=== PATIENT | male | born 1955 | race Caucasian/White ===

== ENCOUNTER 2019-01-20 09:12 | Inpatient (IN) ==
[2019-01-15 18:04] LABS: Appearance,Urine CLEAR; Bacteria,Urine 0 /hpf (0); Bilirubin,Urine NEG (NEG); Color,Urine YELLOW; Culture Indicated,Urine NO; Glucose,Urine (UA) NEGATIVE (NEG); Ketones,Urine NEG (NEG); Leukocyte Esterase,Urine NEG /uL (NEG); Mucus,Urine FEW /hpf (0); Nitrate,Urine NEG (NEG); Protein,Urine NEG (NEG); Urine Blood 0.03 mg/dL (<0.03); Urine RBC 3 /hpf (0-1); Urine Squamous Epithelial Cell 0 /hpf (0-4); Urine WBC 1 /hpf (0-4); Urobilinogen,Urine NEG (NEG)
[2019-01-15 18:50] LABS: Blood Urea Nitrogen 17 mg/dl (8-23); Calcium 9.4 mg/dl (8.6-10.4); Carbon Dioxide 26 mmol/L (22-30); Chloride 104 mmol/L (96-108); Glomerular Filtration Rate 94; Glucose 88 mg/dL (70-105)
[2019-01-15 18:51] LABS: Basophils # (Auto) 0 K/mcL (0.0-0.3); Basophils % (Auto) 0.6 % (0.0-2.0); Eosinophils # (Auto) 0.1 K/mcL (0.0-0.7); Eosinophils % (Auto) 1.1 % (0.0-7.0); Hematocrit 46.7 % (41.0-55.0); Hemoglobin 15.1 g/dL (13.5-16.5); Lymphocytes # (Auto) 2.1 K/mcL (1.5-4.8); Lymphocytes % (Auto) 28.9 % (15.5-49.0); Mean Cell Volume 96.3 fL (80.0-100.0); Mean Corpuscular HGB Conc 32.3 g/dL (31.0-36.0); Mean Platelet Volume 8.4 fL (7.4-10.4); Monocytes # (Auto) 0.5 K/mcL (0.1-0.9); Monocytes % (Auto) 7.4 % (1.0-12.0); Platelet Count 224 K/mcL (140-440); RBC 4.85 M/mcL (4.50-5.90); Red Cell Distribution Width 16.5 % (11.5-14.5); WBC 7.3 K/mcL (4.5-11.0)
[2019-01-15 20:27] LABS: Estimated Average Glucose(eAG) 123 mg/dL; Hemoglobin A1C 5.9 % HGB (4.0-6.0)
[~2019-01-20 09:12] MED LIST: CELECOXIB 200 MG CAPSULE PO SCH; IPRATROPIUM/ALBUTEROL 3 ML AMPUL.NEB NEB PRN; PREGABALIN 75 MG CAPSULE PO SCH; SCOPOLAMINE 1 PATCH PATCH TOPICAL PRN; ceFAZolin 2 GM in DEXTROSE 5% IN WATER 50 ML IV SCH; oxyCODONE 10 MG TAB.ER.12H PO SCH
[2019-01-20] MEDS ORDERED: LIDOCAINE HCL/PF 100 MG/5 ML SYRINGE IV ONE (11:22)
[2019-01-20] MEDS ORDERED: ePHEDrine 50 MG/ML AMPUL IV ONE (11:22)
[2019-01-20] MEDS ORDERED: PROPOFOL 200 MG/20 ML VIAL IV ONE (11:22)
[2019-01-20] MEDS ORDERED: KETAMINE 100 MG/ML ML IV ONE (11:22)
[2019-01-20] MEDS ORDERED: DEXAMETHASONE 10 MG/ML VIAL IV ONE (11:22)
[2019-01-20] MEDS ORDERED: GLYCOPYRROLATE 0.2 MG/ML VIAL IV ONE (11:22)
[2019-01-20] MEDS ORDERED: METOCLOPRAMIDE 10 MG/2 ML VIAL IV ONE (11:22)
[2019-01-20] MEDS ORDERED: FAMOTIDINE/PF 20 MG/2 ML VIAL IV ONE (11:22)
[2019-01-20] MEDS ORDERED: PHENYLEPHRINE 10 MG/ML VIAL IV ONE (11:22)
[2019-01-20] MEDS ORDERED: ONDANSETRON 4 MG/2 ML VIAL IV ONE (11:22)
[2019-01-20] MEDS ORDERED: POLYETHYLENE GLYCOL 3350 17 GM PACKET PO PRN (12:49)
[2019-01-20] MEDS ORDERED: FLEETS ADULT ENEMA PR PRN (12:49)
[2019-01-20] MEDS ORDERED: HYDROmorphone 2 MG/ML VIAL IV PRN (12:49)
[2019-01-20] MEDS ORDERED: BENZOCAINE/MENTHOL 1 LOZENGE PO PRN (12:49)
[2019-01-20] MEDS ORDERED: TRANEXAMIC ACID 1,000 MG/10 ML VIAL IV SCH (12:49)
[2019-01-20] MEDS ORDERED: MAGNESIUM HYDROXIDE 30 ML ORAL.SUSP PO PRN (12:49)
[2019-01-20] MEDS ORDERED: KETOROLAC 30 MG/ML VIAL IV PRN (12:49)
[2019-01-20] MEDS ORDERED: BISACODYL 10 MG SUPP.RECT PR PRN (12:49)
--- NOTE | 2019-01-20 12:49 | Brief Operative Note ---
Date of procedure: 01/20/19 Pre-op diagnosis: Left hip severe OA Post-op diagnosis: same Procedure: Left anterior total hip arthroplasty Grafts/Implants: Yes (Depuy Actis 6 std stem, +1.5 36 delta head, 54 cup, neutral altrx liner) Anesthesia: spinal, GLMA Findings: severe arthritis Complications: none Surgeon: Noe Butler Sales Facilitator: Robbin Benson Estimated blood loss (cc): 300 Specimens Removed/Pathology: none sent Condition: stable Disposition: PACU
[2019-01-20] MEDS ORDERED: CLOTRIMAZOLE/BETAMETHASONE DIP 45 GM CREAM..G. TP PRN (12:54)
--- NOTE | 2019-01-20 13:15 | Operative Note ---
DATE OF OPERATION: 01/20/2019 PREOPERATIVE DIAGNOSIS: Left hip severe osteoarthritis. POSTOPERATIVE DIAGNOSIS: Left hip severe osteoarthritis. PROCEDURE PERFORMED: Left anterior total hip arthroplasty placing a DePuy Actis standard offset size 6 femoral stem, a +1.5, 36 mm delta ceramic head ball with a 54 [place] cup and a neutral AltrX liner. SURGEON: Noe Butler MD LAW OFFICE ASSISTANT: Edilberto Benson PA-C. This provider's expertise and technical skill were required throughout the case. The PA assisted with preoperative coordination, intraoperative retraction, wound closure, dressing and splint application, as well as postoperative documentation and care coordination. ANESTHESIA: Spinal plus general. DRAINS: None. SPECIMENS: Femoral head and reamings, which were discarded. BLOOD LOSS: 300 mL COMPLICATIONS: None. POSTOPERATIVE CONDITION: Stable. INDICATIONS FOR SURGERY: This is a 63-year-old male who has had longstanding progressive worsening left hip pain. Radiographs showed [id number] osteoarthritis. FINDINGS AT SURGERY: Severe arthritis. Post implantation showed good component position with minimal leg lengthening. PROCEDURE IN DETAIL: The patient had been seen preoperatively. Informed consent obtained after discussion of risks and benefits of surgery. Risks including, but not limited to, bleeding; infection; injury to nerves, blood vessels, and other surrounding structures; anesthetic risks; incomplete or no resolution of symptoms; leg length discrepancy; dislocation; fracture; DVT and pulmonary embolus risks; and the possibility of needing further revision joint surgery. The patient understood these risks and wished to proceed. Correct operative site was marked and then spinal anesthesia given. The patient was then taken to the operating room and LMA general given. The patient was carefully transferred to the fracture table and then the operative hip was carefully prepped and draped in normal sterile fashion. Timeout was performed verifying patient name, operative site, and plan. Ioban was used to cover all skin surfaces. A standard anterior approach incision was made with a scalpel through skin and subcutaneous tissue. Hemostasis was obtained with Bovie cautery. Careful blunt dissection was taken down on the tensor fascia and then this was undermined circumferentially. IrriSept was irrigated and a ring retractor placed. Tensor fascia was incised in line with muscle fibers and then careful blunt dissection taken medial to the muscle belly. Blunt cobra retractors were placed on the superior and inferior femoral neck and then circumflex vessels were coagulated and cut and vastus fascia split distally. Anterior capsulectomy was performed and then the capsule releases. Corkscrew was placed in the femoral head. Prior to placement of the corkscrew we did take x-rays for joint point. Once a corkscrew was placed we used fluoroscopy to identify our approximate neck cut trajectory and then our femoral neck was cut with oscillating tip saw. Femoral head was removed and the acetabulum exposed. Labrum was excised circumferentially as well as soft tissue from the floor. We then irrigated with IrriSept. We then began sequentially reaming until 1 mm smaller than the final implant. We then opened the acetabular component. IrriSept was irrigated, after a minute pulse lavaged with saline and then the cup was impacted using the [id number]. Joint point was used to verify satisfactory cup position. A center hole cover was placed and then the acetabular liner was carefully aligned and impacted and carefully verified to be fully seated. We then released traction. The leg was externally rotated and released capsule around the medial neck. The leg was then extended and adducted. Capsule was released out towards greater trochanter and then the proximal femur was exposed. Box osteotome was used to gain canal entry and an awl was used to identify canal trajectory. Rongeur and rasp were used to lateralize and then we began sequentially broaching up to the final size. We calcar planed down onto the broach and then the neck trial and head ball were placed. The hip was reduced. Fluoro was brought in and x-rays taken, joint point was used to verify satisfactory position. We then re-dislocated and removed the trial implants. Definitive implants were opened. We then irrigated the femoral canal with IrriSept again, after a minute pulse lavaged with saline. The final stem was impacted and seated. We then opened the head ball. The stem was carefully cleaned and dried and the head ball was impacted. We then reduced the hip with satisfactory tension. Final fluoro images were taken and saved. We irrigated the joint with IrriSept, after a minute pulse lavaged with saline again and then closed the tensor fascia with two running #1 Vicryls, one running proximal, one running distal and a ring retractor was removed. Final IrriSept irrigation was done, after a minute final pulse lavage, and then fat was tacked to fascia with Vicryl and then 2-0 Monocryl for subcutaneous and geoff for skin. Xeroform and sterile dressing were applied. The patient was then awakened, extubated, and transferred to recovery in stable condition. BJB:norbert Job ID: [id number] Doc ID: [id number] Noe Butler MD
[2019-01-20] MEDS ORDERED: ACETAMINOPHEN 1,000 MG/100 ML BOTTLE IV ONE (13:22)
[2019-01-20] MEDS ORDERED: METHOCARBAMOL 1,000 MG/10 ML VIAL IV PRN (13:22)
[2019-01-20] MEDS ORDERED: fentaNYL 100 MCG/2 ML VIAL IV PRN (13:22)
[2019-01-20] MEDS ORDERED: ONDANSETRON 4 MG/2 ML VIAL IV PRN (13:22)
[2019-01-20] MEDS ORDERED: IPRATROPIUM/ALBUTEROL 3 ML AMPUL.NEB NEB PRN (13:22)
[2019-01-20] MEDS ORDERED: MEPERIDINE 25 MG/ML SYRINGE IV PRN (13:22)
[2019-01-20] MEDS ORDERED: LACTATED RINGERS 1,000 ML IV SCH (13:30)
--- NOTE | 2019-01-20 13:30 | XRay Report ---
CLINICAL INFORMATION: Left total hip arthroplasty TECHNIQUE: 0.4 minutes fluoroscopy utilized by Dr. Butler. Intraoperative spot films obtained. IMPRESSION: Left total hip arthroplasty Interpreted and Authenticated by: Tod Decker 01/20/19
--- NOTE | 2019-01-20 14:09 | XRay Report ---
CLINICAL INFORMATION: Left total hip arthroplasty TECHNIQUE: AP pelvis. AP and lateral left hip COMPARISON: Preoperative evaluation dated 10/21/2018 FINDINGS: Status post left total hip arthroplasty. Acetabular and femoral head component are in anatomic positions. There are skin geoff anteriorly. There is mild soft tissue post surgical gas IMPRESSION: Status post left total hip arthroplasty Interpreted and Authenticated by: Tod Decker 01/20/19
[2019-01-20] MEDS ORDERED: MAGNESIUM SULFATE 2 GM/50 ML BAG IV ONE (14:23)
[2019-01-20] MEDS ORDERED: DEXMEDETOMIDINE 400 MCG/100 ML BAG IV SCH (14:30)
[2019-01-20] MEDS ORDERED: BENZTROPINE 2 MG/2 ML AMPUL IV ONE (14:40)
--- NOTE | 2019-01-20 15:20 | XRay Report ---
CLINICAL INFORMATION: Postop left total hip arthroplasty TECHNIQUE: AP left hip COMPARISON: Previous postoperative left hip dated 01/20/2019 FINDINGS: Status post left total hip arthroplasty. There are skin geoff present. Alignment is anatomic on this single view. IMPRESSION: 1. Status post left total hip arthroplasty 2. Normal anatomic alignment demonstrated on single AP view Interpreted and Authenticated by: Tod Decker 01/20/19
--- NOTE | 2019-01-20 16:18 | Discharge Summary ---
Providers - Providers Patient information: Note initiated : 01/20/19 at 4:14 pm Service Date, if different from initiated Date: [] Patient: Ron Hawkins 63 y/o M admitted on 01/20/19 for Left Total Hip Arthroplasty Anterior. Chief Complaint: Pt examined on 01/21/19. NVI-Distal, Bandages c/d/i. Pt ready for discharge to home today. Discharge date: 01/21/19 Hospitalization Hospital Course: Pt was admitted for a L DORIE. Pt admitted on the day of admission. Pt spent one night on the floor for IV pain meds, IV abx, and PT. Pt discharged on post-op day 1. ASA for DVT prophylaxis. f/u in 2 weeks. Pt did dislocated the hip in recovery. This was reduced without incident. Pt had muscle spasms due to reglan allergy causing the dislocation. Discharge diagnosis: L hip OA Exam - Exam Clean and dry: Yes Weight bearing status: as tolerated Ortho Discharge - DORIE - Patient Instructions Diet: Regular Diet Activity: activity as tolerated, weight bearing as tolerated Total Hip Protocol: Follow activity instructions as provided by Physical Therapy. Dressing Care: May shower in 2 days - Follow Up Plan Follow Up Appointments: Robbin Benson PA-C [Physician Shaper Setter] - 02/05/19 2:20 pm Disposition: Home, Self-Care Prognosis: Good Rehab Potential: Good Overall status at discharge: patient is progressing back to baseline - Orders For Discharge Prescriptions: Aspirin [Aspirin EC] 325 mg PO BID #60 Prescription Printed oxyCODONE/APAP [Percocet 5-325 mg] 1 - 2 tab PO Q4HP PRN #75 tab PRN Reason: Pain Level 3-6 Prescription Printed Additional Discharge Orders: Physical Therapy at Discharge - General Location: None Selected Walker Location: None Selected Pending Studies Resuscitation Status Full Code Diet Regular Diet Start SatJan 20 1251 Magnesium Sulfate (Magnesium Sulfate) 2 gm in 50 mls @ 25 mls/hr IV ONCE ONE Stop: 01/20/19 16:22 Last Admin: 01/20/19 14:30 Dose: 25 mls/hr Documented by: PIERCE
[2019-01-20] MEDS: 0.9 % SODIUM CHLORIDE 1,000 ML IV SCH (17:05)
[2019-01-20] MEDS: 0.9 % SODIUM CHLORIDE 10 ML SYRINGE IV SCH ×2 (17:26→22:00)
[2019-01-20] MEDS: ceFAZolin 1 GM VIAL IV SCH (18:41)
[2019-01-20] MEDS ORDERED: amLODIPine 5 MG TABLET PO SCH (21:00)
[2019-01-20] MEDS ORDERED: LISINOPRIL 20 MG TABLET PO SCH (21:00)
[2019-01-20] MEDS ORDERED: SENNOSIDES 1 TABLET PO SCH (21:00)
[2019-01-20] MEDS: ASPIRIN 81 MG TAB.CHEW PO SCH (21:21)
[2019-01-20] MEDS: DOCUSATE SODIUM 100 MG CAPSULE PO SCH (21:21)
[2019-01-20] MEDS: oxyCODONE/APAP 5/325MG TABLET PO PRN (23:08)
[2019-01-20] MEDS: ONDANSETRON 4 MG/2 ML VIAL IV PRN (23:09)
[2019-01-21] MEDS: 0.9 % SODIUM CHLORIDE 1,000 ML IV SCH ×2 (00:10→07:30)
[2019-01-21] MEDS: ceFAZolin 1 GM VIAL IV SCH (04:30)
[2019-01-21] MEDS: oxyCODONE/APAP 5/325MG TABLET PO PRN (04:59)
[2019-01-21] MEDS: ONDANSETRON 4 MG/2 ML VIAL IV PRN (05:00)
[2019-01-21] MEDS: ASPIRIN 81 MG TAB.CHEW PO SCH (08:52)
[2019-01-21] MEDS: DOCUSATE SODIUM 100 MG CAPSULE PO SCH (08:52)
[2019-01-21] MEDS: 0.9 % SODIUM CHLORIDE 10 ML SYRINGE IV SCH (08:52)
== END 2019-01-21 11:05 | disposition home or self-care (01) | DRG 470 ==
LOC: MEDSUR 09:12
PROVIDERS: ADMIT Orthopaedic Surgery; ATTEND Orthopaedic Surgery